=== PATIENT | male | born 1960 | race Caucasian/White ===

== ENCOUNTER 2018-07-09 08:24 | Inpatient (IN) | payer MEDICAID ==
[~2018-07-09] VITALS: Ht 188 cm; Wt 106.0 kg
[~2018-07-09 08:24] MED LIST: AMLO10TA2 PO; HCTZ25T PO
[2018-07-09] MEDS ORDERED: thiamine 100mg/ml 2ml inj. IV ONE ×2 (08:30→12:10)
[2018-07-09] MEDS ORDERED: folic acid 1mg/0.2ml inj IV ONE (08:30)
[2018-07-09] MEDS ORDERED: normal saline 1000ML IV soln IVB ONE (08:30)
[2018-07-09] MEDS ORDERED: ondansetron/PF 4mg/2ml inj IV ONE (08:30)
[2018-07-09] MEDS ORDERED: NALT50TA PO (08:40)
[2018-07-09] MEDS ORDERED: SERT100T PO (08:40)
[2018-07-09] MEDS ORDERED: OMEP20CA10 PO (08:40)
[2018-07-09 09:53] LABS: BASOPHILS % (AUTO) 0 % (0-1); EOSINOPHILS # (AUTO) 0.3 X10'3 (0-0.9); EOSINOPHILS % (AUTO) 1.6 % (0-6); HEMATOCRIT 41.1 % (42.0-52.0); HEMOGLOBIN 14.4 g/dl (14.0-17.9); LYMPHOCYTES # (AUTO) 0.7 X10'3 (1.1-4.8); LYMPHOCYTES % (AUTO) 4.4 % (21-51); MEAN CORPUSCULAR HEMOGLOBIN 36.9 PG (27.0-31.0); MEAN CORPUSCULAR HGB CONC 35.1 % (33.0-36.5); MEAN CORPUSCULAR VOLUME 105.1 FL (78-98); MEAN PLATELET VOLUME 8.4 FL (7.4-10.4); MONOCYTES # (AUTO) 1.2 X10'3 (0-0.9); MONOCYTES % (AUTO) 7.3 % (2-12); NEUTROPHILS # (AUTO) 14.6 X10'3 (1.8-7.7); NEUTROPHILS % (AUTO) 86.7 % (42-75); PLATELET COUNT 121 X10'3 (140-440); RED BLOOD COUNT 3.92 X10'6 (4.70-6.10); RED CELL DISTRIBUTION WIDTH 17.4 % (11.5-14.5); WHITE BLOOD COUNT 16.8 X10'3 (4.5-11.0)
[2018-07-09] MEDS: cefepime 1GM/NS ADD-VANTAGE 100 ML IV SCH ×2 (10:11→16:21)
[2018-07-09 10:24] LABS: ALBUMIN 1.9 G/DL (3.4-5.0); ANION GAP 13 (8-16); BLOOD UREA NITROGEN 75 MG/DL (7-18); CALCIUM 8.7 MG/DL (8.5-10.1); CHLORIDE 88 MMOL/L (99-107); LIPASE 436 U/L (73-393); TOTAL CARBON DIOXIDE 29.3 MMOL/L (24-32); TROPONIN I < 0.04 NG/ML (0.0-0.05)
[2018-07-09 10:37] LABS: ALBUMIN/GLOBULIN RATIO 0.4 (1.1-1.5); GLUCOSE 117 MG/DL (70-104)
[2018-07-09 10:47] LABS: ALANINE AMINOTRANSFERASE 119 U/L (12-78); ASPARTATE AMINO TRANSFERASE 249 U/L (10-37); BILIRUBIN,TOTAL 33.7 MG/DL (0.1-1.0); BUN/CREATININE RATIO 21.6 (5.4-32.0); CREATININE 3.48 MG/DL (0.60-1.10); ETHANOL < 0.010 GM/DL (0.0-0.010); SODIUM 130 MMOL/L (135-145); eGFR 18 ML/MIN
[2018-07-09 10:49] LABS: POTASSIUM 2.4 MMOL/L (3.5-5.1)
[2018-07-09 10:52] LABS: TOTAL PROTEIN 7.3 G/DL (6.4-8.2)
[2018-07-09] MEDS ORDERED: potassium Cl oral solution 20 MEQ/15 ML PO ONE (10:55)
[2018-07-09] MEDS ORDERED: lactulose 20gm/30ml cup PO ONE (11:00)
[2018-07-09 11:52] LABS: ALKALINE PHOSPHATASE 227 IU/L (46-116)
[2018-07-09] MEDS ORDERED: magnesium 4gm in 100ml NS 100 ML IV PRN (12:10)
[2018-07-09] MEDS ORDERED: acetaminophen 325mg tablet PO PRN (12:10)
[2018-07-09] MEDS ORDERED: magnesium 1gm/100ml D5W IVPB 100 ML IV PRN (12:10)
[2018-07-09] MEDS ORDERED: magnesium Cl slow-release 64mg tablet PO PRN (12:10)
[2018-07-09] MEDS ORDERED: potassium Cl 40MEQ/NS 500ml 500 ML IV PRN ×2 (12:10)
[2018-07-09] MEDS ORDERED: dextrose 50%-water 50ml dispensing syringe IV PRN (12:10)
[2018-07-09] MEDS: normal saline 1000ml 1,000 ML IV SCH (12:45)
[2018-07-09] MEDS: lactulose 20gm/30ml cup PO SCH ×2 (13:00→21:34)
[2018-07-09] MEDS ORDERED: iohexol 300mg/ml 100ml inj. ONE (14:41)
[2018-07-09 15:57] VITALS: BP 124/68
[2018-07-09 17:40] LABS: OCCULT BLOOD STOOL POSITIVE (Neg)
[2018-07-09 18:00] VITALS: BP 114/64
[2018-07-09 18:46] LABS: MAGNESIUM 4.2 MG/DL (1.5-2.4); POTASSIUM 2.6 MMOL/L (3.5-5.1)
[2018-07-09] MEDS ORDERED: haloperidol lactate 5mg/ml inj IM PRN (19:05)
[2018-07-09] MEDS ORDERED: haloperidol 5mg tablet PO PRN (19:05)
[2018-07-09] MEDS: potassium Cl 20 mEq SR tablet PO PRN (21:42)
[2018-07-10] VITALS: BP 116/61
[2018-07-10] MEDS: potassium Cl 20 mEq SR tablet PO PRN ×4 (03:51→19:25)
[2018-07-10 06:07] LABS: BASOPHILS % (AUTO) 0 % (0-1); EOSINOPHILS # (AUTO) 0.1 X10'3 (0-0.9); EOSINOPHILS % (AUTO) 0.5 % (0-6); HEMATOCRIT 38.8 % (42.0-52.0); HEMOGLOBIN 13.6 g/dl (14.0-17.9); LYMPHOCYTES # (AUTO) 0.8 X10'3 (1.1-4.8); LYMPHOCYTES % (AUTO) 5.3 % (21-51); MEAN CORPUSCULAR HEMOGLOBIN 37.4 PG (27.0-31.0); MEAN CORPUSCULAR VOLUME 106.9 FL (78-98); MEAN PLATELET VOLUME 8.4 FL (7.4-10.4); MONOCYTES # (AUTO) 1.3 X10'3 (0-0.9); MONOCYTES % (AUTO) 8.1 % (2-12); NEUTROPHILS # (AUTO) 13.5 X10'3 (1.8-7.7); NEUTROPHILS % (AUTO) 86.1 % (42-75); PLATELET COUNT 108 X10'3 (140-440); RED BLOOD COUNT 3.63 X10'6 (4.70-6.10); RED CELL DISTRIBUTION WIDTH 17.5 % (11.5-14.5); WHITE BLOOD COUNT 15.7 X10'3 (4.5-11.0)
[2018-07-10 06:27] LABS: INR 2.1 INR; PROTHROMBIN TIME 20.1 SECONDS (9.0-12.0)
[2018-07-10] MEDS: LORazepam 2 mg/ml vial IV PRN ×2 (06:31→11:37)
[2018-07-10 06:38] LABS: ALANINE AMINOTRANSFERASE 120 U/L (12-78); ALBUMIN 1.7 G/DL (3.4-5.0); ALKALINE PHOSPHATASE 196 IU/L (46-116); ANION GAP 9 (8-16); BLOOD UREA NITROGEN 76 MG/DL (7-18); CALCIUM 8.2 MG/DL (8.5-10.1); CHLORIDE 92 MMOL/L (99-107); CREATININE 3.99 MG/DL (0.60-1.10); SODIUM 130 MMOL/L (135-145); TOTAL CARBON DIOXIDE 28.7 MMOL/L (24-32); eGFR 16 ML/MIN
[2018-07-10 06:39] LABS: ASPARTATE AMINO TRANSFERASE 231 U/L (10-37); BILIRUBIN,TOTAL 31.9 MG/DL (0.1-1.0); GLUCOSE 98 MG/DL (70-104)
[2018-07-10 06:44] LABS: MAGNESIUM 4.1 MG/DL (1.5-2.4); POTASSIUM 2.9 MMOL/L (3.5-5.1)
[2018-07-10 06:57] LABS: TOTAL PROTEIN 6.7 G/DL (6.4-8.2)
[2018-07-10] MEDS: K and/or MAG REPLACEMENT MC SCH (07:06)
[2018-07-10] MEDS: sertraline 50mg tablet PO SCH (07:15)
[2018-07-10] MEDS: pantoprazole 40 MG vial IV SCH (07:15)
[2018-07-10] MEDS: CefTRIAXone 2gm/D5W 50ml 50 ML IV SCH (07:17)
[2018-07-10 07:26] VITALS: BP 128/77
[2018-07-10] MEDS ORDERED: heparin, porcine 5000 units/ml vial SQ SCH (08:00)
[2018-07-10] MEDS: lactulose 20gm/30ml cup PO SCH ×3 (08:00→21:23)
[2018-07-10] MEDS: normal saline 1000ml 1,000 ML IV SCH (11:00)
[2018-07-10 11:03] VITALS: BP 125/64
[2018-07-10] MEDS ORDERED: thiamine inj. 100 MG in normal saline 100ml IV soln 100 ML IV ONE (12:30)
[2018-07-10] MEDS ORDERED: dextrose 50%-water 50ml dispensing syringe IV PRN (12:30)
[2018-07-10] MEDS: dextrose 5%-1/2 normal saline 1,000 ML IV SCH (13:49)
[2018-07-10] MEDS: folic acid inj. 2 MG, thiamine inj. 100 MG, MVI, adult No.4 with vit. K 10 ML in dextro... IV SCH ×4 (17:08)
[2018-07-10 17:18] LABS: ALBUMIN/GLOBULIN RATIO 0.3 (1.1-1.5)
[2018-07-10] MEDS ORDERED: predniSONE 20 mg tablet PO STA (19:00)
[2018-07-10 20:00] VITALS: BP 116/66
[2018-07-10] MEDS: albumin (human) 25% 100ml IV 100 ML IV SCH (21:40)
[2018-07-11] VITALS: BP 130/70
[2018-07-11] MEDS: LORazepam 2 mg/ml vial IV PRN ×3 (00:18→09:30)
[2018-07-11] MEDS: dextrose 5%-1/2 normal saline 1,000 ML IV SCH ×2 (01:45→15:32)
[2018-07-11] MEDS: albumin (human) 25% 100ml IV 100 ML IV SCH ×3 (03:46→15:28)
[2018-07-11 05:02] LABS: BASOPHILS % (AUTO) 0.1 % (0-1); EOSINOPHILS # (AUTO) 0.3 X10'3 (0-0.9); EOSINOPHILS % (AUTO) 1.9 % (0-6); HEMATOCRIT 36.5 % (42.0-52.0); HEMOGLOBIN 12.5 g/dl (14.0-17.9); LYMPHOCYTES # (AUTO) 0.5 X10'3 (1.1-4.8); LYMPHOCYTES % (AUTO) 3.6 % (21-51); MEAN CORPUSCULAR HEMOGLOBIN 36.5 PG (27.0-31.0); MEAN CORPUSCULAR HGB CONC 34.1 % (33.0-36.5); MEAN CORPUSCULAR VOLUME 106.8 FL (78-98); MEAN PLATELET VOLUME 8.2 FL (7.4-10.4); MONOCYTES # (AUTO) 0.6 X10'3 (0-0.9); MONOCYTES % (AUTO) 4.9 % (2-12); NEUTROPHILS # (AUTO) 11.6 X10'3 (1.8-7.7); NEUTROPHILS % (AUTO) 89.5 % (42-75); PLATELET COUNT 91 X10'3 (140-440); RED BLOOD COUNT 3.42 X10'6 (4.70-6.10); RED CELL DISTRIBUTION WIDTH 17.8 % (11.5-14.5); WHITE BLOOD COUNT 12.9 X10'3 (4.5-11.0)
[2018-07-11 05:21] LABS: INR 2.1 INR; PROTHROMBIN TIME 20.9 SECONDS (9.0-12.0)
[2018-07-11 05:36] LABS: ALANINE AMINOTRANSFERASE 120 U/L (12-78); ALBUMIN 2.1 G/DL (3.4-5.0); ALKALINE PHOSPHATASE 178 IU/L (46-116); BLOOD UREA NITROGEN 82 MG/DL (7-18); BUN/CREATININE RATIO 18.1 (5.4-32.0); CALCIUM 8.5 MG/DL (8.5-10.1); CREATININE 4.54 MG/DL (0.60-1.10); TOTAL CARBON DIOXIDE 26.7 MMOL/L (24-32); eGFR 14 ML/MIN
[2018-07-11 05:59] LABS: ALBUMIN/GLOBULIN RATIO 0.5 (1.1-1.5); ASPARTATE AMINO TRANSFERASE 228 U/L (10-37); GLUCOSE 122 MG/DL (70-104); MAGNESIUM 3.7 MG/DL (1.5-2.4); POTASSIUM 3.3 MMOL/L (3.5-5.1); SODIUM 126 MMOL/L (135-145)
[2018-07-11 06:01] LABS: BILIRUBIN,TOTAL 32.7 MG/DL (0.1-1.0)
[2018-07-11 06:03] LABS: ANION GAP 3 (8-16); CHLORIDE 96 MMOL/L (99-107)
[2018-07-11] MEDS: pantoprazole 40 MG vial IV SCH (07:56)
[2018-07-11] MEDS: predniSONE 20 mg tablet PO SCH (07:56)
[2018-07-11] MEDS: sertraline 50mg tablet PO SCH (07:56)
[2018-07-11] MEDS: lactulose 20gm/30ml cup PO SCH ×3 (07:57→21:05)
[2018-07-11] MEDS: K and/or MAG REPLACEMENT MC SCH (08:00)
[2018-07-11 08:18] VITALS: BP 119/72
[2018-07-11 08:50] LABS: PLATELET ESTIMATE DECREASED
[2018-07-11 08:51] LABS: ANISOCYTOSIS 2+; TARGET CELLS FEW; TEAR DROP CELLS FEW
[2018-07-11] MEDS: CefTRIAXone 2gm/D5W 50ml 50 ML IV SCH (09:21)
[2018-07-11] MEDS ORDERED: magnesium 2GM in 50ml NS 50 ML IV PRN (09:44)
[2018-07-11] MEDS: potassium Cl 20 mEq SR tablet PO PRN ×3 (10:39→21:06)
[2018-07-11 11:00] VITALS: BP 124/69
[2018-07-11] MEDS ORDERED: midodrine 5mg tablet PO SCH (16:00)
[2018-07-11] MEDS ORDERED: diphenhydrAMINE 25mg capsule PO PRN (16:30)
[2018-07-11] MEDS: ondansetron/PF 4mg/2ml inj IV PRN (19:04)
[2018-07-11] MEDS ORDERED: LORazepam 1 MG tablet PO PRN (19:05)
[2018-07-11 20:00] VITALS: BP 124/72
[2018-07-12] VITALS: BP 129/75
[2018-07-12] MEDS: albumin (human) 25% 100ml IV 100 ML IV SCH ×4 (00:39→23:33)
[2018-07-12] MEDS: LORazepam 2 mg/ml vial IV PRN ×6 (01:45→23:26)
[2018-07-12] MEDS: dextrose 5%-1/2 normal saline 1,000 ML IV SCH ×3 (01:55→23:32)
[2018-07-12] MEDS: predniSONE 20 mg tablet PO SCH (07:35)
[2018-07-12] MEDS: pantoprazole 40mg Tablet.DR PO SCH (07:35)
[2018-07-12] MEDS: CefTRIAXone 2gm/D5W 50ml 50 ML IV SCH (07:35)
[2018-07-12] MEDS: sertraline 50mg tablet PO SCH (07:35)
[2018-07-12] MEDS: lactulose 20gm/30ml cup PO SCH ×2 (07:35→20:00)
[2018-07-12 07:48] VITALS: BP 115/56
[2018-07-12] MEDS: K and/or MAG REPLACEMENT MC SCH (08:00)
[2018-07-12 08:20] LABS: BASOPHILS % (AUTO) 0 % (0-1); EOSINOPHILS # (AUTO) 0.3 X10'3 (0-0.9); EOSINOPHILS % (AUTO) 1.9 % (0-6); HEMATOCRIT 34.5 % (42.0-52.0); HEMOGLOBIN 11.7 g/dl (14.0-17.9); LYMPHOCYTES # (AUTO) 0.5 X10'3 (1.1-4.8); LYMPHOCYTES % (AUTO) 3.3 % (21-51); MEAN CORPUSCULAR HEMOGLOBIN 36.5 PG (27.0-31.0); MEAN CORPUSCULAR HGB CONC 33.9 % (33.0-36.5); MEAN CORPUSCULAR VOLUME 107.9 FL (78-98); MEAN PLATELET VOLUME 8.4 FL (7.4-10.4); MONOCYTES % (AUTO) 6.8 % (2-12); NEUTROPHILS # (AUTO) 12.4 X10'3 (1.8-7.7); PLATELET COUNT 92 X10'3 (140-440); RED CELL DISTRIBUTION WIDTH 17.9 % (11.5-14.5); WHITE BLOOD COUNT 14.1 X10'3 (4.5-11.0)
[2018-07-12 08:30] LABS: ALBUMIN 2.7 G/DL (3.4-5.0); ALKALINE PHOSPHATASE 157 IU/L (46-116); BLOOD UREA NITROGEN 90 MG/DL (7-18); CHLORIDE 99 MMOL/L (99-107); TOTAL CARBON DIOXIDE 25.4 MMOL/L (24-32)
[2018-07-12 08:38] LABS: ALBUMIN/GLOBULIN RATIO 0.8 (1.1-1.5); BILIRUBIN,TOTAL 32.6 MG/DL (0.1-1.0); POTASSIUM 3.5 MMOL/L (3.5-5.1); TOTAL PROTEIN 6.1 G/DL (6.4-8.2); eGFR 14 ML/MIN
[2018-07-12 08:50] LABS: ANION GAP 13 (8-16); SODIUM 137 MMOL/L (135-145)
[2018-07-12 09:06] LABS: INR 2.3 INR
[2018-07-12 09:11] LABS: BUN/CREATININE RATIO 20.1 (5.4-32.0); CREATININE 4.48 MG/DL (0.60-1.10); GLUCOSE 107 MG/DL (70-104); MAGNESIUM 3.9 MG/DL (1.5-2.4)
[2018-07-12 09:12] LABS: ALANINE AMINOTRANSFERASE 112 U/L (12-78); ASPARTATE AMINO TRANSFERASE 167 U/L (10-37)
[2018-07-12] MEDS: folic acid inj. 2 MG, thiamine inj. 100 MG, MVI, adult No.4 with vit. K 10 ML in dextro... IV SCH ×4 (09:56)
[2018-07-12 12:34] VITALS: BP 105/60
[2018-07-12] MEDS: midodrine 5mg tablet PO SCH ×2 (16:00→23:32)
[2018-07-12 19:15] VITALS: BP 117/72
[2018-07-12] MEDS: ondansetron/PF 4mg/2ml inj IV PRN (20:27)
[2018-07-12 23:00] VITALS: BP 127/77
[2018-07-13] MEDS: LORazepam 2 mg/ml vial IV PRN ×7 (00:58→17:14)
[2018-07-13 06:43] LABS: BASOPHILS % (AUTO) 0.2 % (0-1); EOSINOPHILS # (AUTO) 0.1 X10'3 (0-0.9); EOSINOPHILS % (AUTO) 0.8 % (0-6); HEMATOCRIT 33.9 % (42.0-52.0); HEMOGLOBIN 11.5 g/dl (14.0-17.9); LYMPHOCYTES # (AUTO) 0.8 X10'3 (1.1-4.8); LYMPHOCYTES % (AUTO) 4.4 % (21-51); MEAN CORPUSCULAR HEMOGLOBIN 36.9 PG (27.0-31.0); MEAN CORPUSCULAR HGB CONC 34.1 % (33.0-36.5); MEAN CORPUSCULAR VOLUME 108.5 FL (78-98); MEAN PLATELET VOLUME 8.1 FL (7.4-10.4); MONOCYTES # (AUTO) 0.8 X10'3 (0-0.9); MONOCYTES % (AUTO) 4.5 % (2-12); NEUTROPHILS # (AUTO) 15.5 X10'3 (1.8-7.7); NEUTROPHILS % (AUTO) 90.1 % (42-75); PLATELET COUNT 86 X10'3 (140-440); RED BLOOD COUNT 3.12 X10'6 (4.70-6.10); WHITE BLOOD COUNT 17.2 X10'3 (4.5-11.0)
[2018-07-13 06:59] LABS: INR 2.4 INR; PROTHROMBIN TIME 23.4 SECONDS (9.0-12.0)
[2018-07-13 07:17] LABS: ALBUMIN 2.9 G/DL (3.4-5.0); ALKALINE PHOSPHATASE 150 IU/L (46-116); BLOOD UREA NITROGEN 92 MG/DL (7-18); CALCIUM 8.8 MG/DL (8.5-10.1); CHLORIDE 101 MMOL/L (99-107); TOTAL CARBON DIOXIDE 25.7 MMOL/L (24-32)
[2018-07-13 07:26] VITALS: BP 128/79
[2018-07-13 07:29] LABS: ALBUMIN/GLOBULIN RATIO 0.9 (1.1-1.5); ANION GAP 11 (8-16); BUN/CREATININE RATIO 23.7 (5.4-32.0); CREATININE 3.88 MG/DL (0.60-1.10); GLUCOSE 112 MG/DL (70-104); MAGNESIUM 3.6 MG/DL (1.5-2.4); SODIUM 138 MMOL/L (135-145); TOTAL PROTEIN 6.1 G/DL (6.4-8.2); eGFR 16 ML/MIN
[2018-07-13 07:32] LABS: ALANINE AMINOTRANSFERASE 121 U/L (12-78); ASPARTATE AMINO TRANSFERASE 153 U/L (10-37); BILIRUBIN,TOTAL 31.7 MG/DL (0.1-1.0)
[2018-07-13 07:35] LABS: POTASSIUM 3.2 MMOL/L (3.5-5.1)
[2018-07-13] MEDS: K and/or MAG REPLACEMENT MC SCH (08:00)
[2018-07-13] MEDS: thiamine 100mg tablet PO SCH (08:30)
[2018-07-13] MEDS: pantoprazole 40mg Tablet.DR PO SCH (08:30)
[2018-07-13] MEDS: multivitamins, therapeutics tablet PO SCH (08:30)
[2018-07-13] MEDS: sertraline 50mg tablet PO SCH (08:30)
[2018-07-13] MEDS: CefTRIAXone 2gm/D5W 50ml 50 ML IV SCH (08:30)
[2018-07-13] MEDS: predniSONE 20 mg tablet PO SCH (08:31)
[2018-07-13] MEDS: folic acid 1mg tablet PO SCH (08:31)
[2018-07-13] MEDS: lactulose 20gm/30ml cup PO SCH ×2 (08:31→20:00)
[2018-07-13] MEDS: midodrine 5mg tablet PO SCH ×2 (08:32→15:47)
[2018-07-13] MEDS: albumin (human) 25% 100ml IV 100 ML IV SCH ×2 (08:36→15:46)
[2018-07-13] MEDS ORDERED: FLU VACC QUAD 2018(5 YR UP)/PF 60 MCG/0.5 ML SYRINGE IM ONE (10:00)
[2018-07-13] MEDS ORDERED: LORazepam 2 mg/ml vial IV PRN ×3 (12:10→19:05)
[2018-07-13] MEDS: dextrose 5%-1/2 normal saline 1,000 ML IV SCH (13:30)
[2018-07-13] MEDS ORDERED: predniSONE 20 mg tablet PO SCH (17:05)
[2018-07-13] MEDS: metroNIDAZOLE-Flagyl 500mg/NS 100 ML IV SCH (17:31)
[2018-07-13] MEDS ORDERED: potassium Cl 40MEQ/NS 500ml 500 ML IV PRN ×2 (17:50)
[2018-07-13] MEDS ORDERED: potassium Cl 20 mEq SR tablet PO PRN ×2 (17:50)
[2018-07-13] MEDS ORDERED: LORazepam 1 MG tablet PO PRN ×2 (17:55→19:05)
[2018-07-13 18:45] VITALS: BP 141/71
[2018-07-13] MEDS: lactobacillus rhamnosus 10,000 MMU CELLS/CAPSULE PO SCH (20:00)
[2018-07-13] MEDS ORDERED: albuterol 2.5 MG/3 ML nebule NEB PRN (20:10)
[2018-07-13 21:03] VITALS: BP 128/72
[2018-07-13 21:45] VITALS: BP 120/66
[2018-07-13] MEDS: meropenem inj 1 GM in normal saline 100ml IV soln 100 ML IV SCH (23:12)
[2018-07-14] MEDS: metroNIDAZOLE-Flagyl 500mg/NS 100 ML IV SCH ×3 (01:11→17:15)
[2018-07-14] MEDS: albumin (human) 25% 100ml IV 100 ML IV SCH ×2 (02:17→15:46)
[2018-07-14] MEDS: LORazepam 2 mg/ml vial IV PRN ×4 (02:21→17:41)
[2018-07-14 03:00] VITALS: BP_SYST 121; BP_DIAS 7; BP_DIAS 77
[2018-07-14 04:05] LABS: ABG BASE EXCESS -2.8 mmol/L (-2.0-3.0); ABG HCO3 24.2 mmol/L (22.0-26.0); ABG PCO2 (T) 52.2 mmHg (35.0-48.0); ABG PH (T) 7.286 (7.350-7.450); ABG PO2 (T) 81.8 mmHg (83-108); ALLEN'S TEST Positive; FCOHb 1.7 % (0.5-1.5); FLOW 15 L/min; FMetHb 0.1 % (0.3-1.12); FO2Hb 93.3 % (94-100); PATIENT TEMPERATURE 37.2; RESPIRATORY RATE (OBSERVED) 20 b/min; TOTAL HEMOGLOBIN 12.4 G/dl (14.0-18.0)
[2018-07-14 05:00] VITALS: BP 138/77
[2018-07-14 06:00] VITALS: BP 130/69
[2018-07-14 06:23] LABS: BASOPHILS # (AUTO) 0.1 X10'3 (0-0.2); BASOPHILS % (AUTO) 0.4 % (0-1); EOSINOPHILS % (AUTO) 0 % (0-6); HEMATOCRIT 35.6 % (42.0-52.0); LYMPHOCYTES # (AUTO) 0.4 X10'3 (1.1-4.8); LYMPHOCYTES % (AUTO) 2.4 % (21-51); MEAN CORPUSCULAR HEMOGLOBIN 36.8 PG (27.0-31.0); MEAN CORPUSCULAR HGB CONC 33.7 % (33.0-36.5); MEAN PLATELET VOLUME 8.5 FL (7.4-10.4); MONOCYTES # (AUTO) 0.8 X10'3 (0-0.9); NEUTROPHILS # (AUTO) 17.7 X10'3 (1.8-7.7); NEUTROPHILS % (AUTO) 93.2 % (42-75); PLATELET COUNT 80 X10'3 (140-440); RED BLOOD COUNT 3.27 X10'6 (4.70-6.10); RED CELL DISTRIBUTION WIDTH 18.3 % (11.5-14.5)
[2018-07-14 06:25] LABS: HBSAG SCREEN Negative (Negative); HEP A AB, IGM Negative (Negative); HEP B CORE AB, IGM Negative (Negative); HEPATITIS C ANTIBODY 0.1 s/co ratio (0.0-0.9)
[2018-07-14 06:39] LABS: INR 2.4 INR; PROTHROMBIN TIME 23.2 SECONDS (9.0-12.0)
[2018-07-14 06:49] LABS: ALBUMIN 3.2 G/DL (3.4-5.0); ALKALINE PHOSPHATASE 153 IU/L (46-116); BLOOD UREA NITROGEN 95 MG/DL (7-18); CHLORIDE 105 MMOL/L (99-107); TOTAL CARBON DIOXIDE 24.9 MMOL/L (24-32)
[2018-07-14 07:04] LABS: ANION GAP 19 (8-16); BUN/CREATININE RATIO 25.8 (5.4-32.0); CREATININE 3.68 MG/DL (0.60-1.10); GLUCOSE 124 MG/DL (70-104); MAGNESIUM 3.3 MG/DL (1.5-2.4); POTASSIUM 3.7 MMOL/L (3.5-5.1); SODIUM 149 MMOL/L (135-145); TOTAL PROTEIN 6.4 G/DL (6.4-8.2); eGFR 17 ML/MIN
[2018-07-14 07:05] LABS: ALANINE AMINOTRANSFERASE 127 U/L (12-78); ASPARTATE AMINO TRANSFERASE 144 U/L (10-37); BILIRUBIN,TOTAL 34.6 MG/DL (0.1-1.0)
[2018-07-14 07:10] LABS: ABG BASE EXCESS -3.2 mmol/L (-2.0-3.0); ABG HCO3 23.8 mmol/L (22.0-26.0); ABG OXYGEN SATURATION 88.8 % (95-98); ABG PCO2 (T) 51.3 mmHg (35.0-48.0); ABG PH (T) 7.285 (7.350-7.450); ABG PO2 (T) 58.4 mmHg (83-108); FCOHb 1.7 % (0.5-1.5); FMetHb 0.1 % (0.3-1.12); FO2Hb 87.2 % (94-100); MINUTE VOLUME 23 L/min; RESPIRATORY RATE 12 b/min; RESPIRATORY RATE (OBSERVED) 26 b/min; TIDAL VOLUME 555 mL; TOTAL HEMOGLOBIN 12.4 G/dl (14.0-18.0)
[2018-07-14] MEDS: pantoprazole 40mg Tablet.DR PO SCH (07:30)
[2018-07-14] MEDS: midodrine 5mg tablet PO SCH ×3 (08:00→16:00)
[2018-07-14] MEDS: lactobacillus rhamnosus 10,000 MMU CELLS/CAPSULE PO SCH (08:00)
[2018-07-14] MEDS: thiamine 100mg tablet PO SCH (08:00)
[2018-07-14] MEDS: sertraline 50mg tablet PO SCH (08:00)
[2018-07-14] MEDS: K and/or MAG REPLACEMENT MC SCH (08:00)
[2018-07-14] MEDS: multivitamins, therapeutics tablet PO SCH (08:00)
[2018-07-14] MEDS: lactulose 20gm/30ml cup PO SCH (08:00)
[2018-07-14] MEDS: folic acid 1mg tablet PO SCH (08:00)
[2018-07-14] MEDS: predniSONE 20 mg tablet PO SCH (08:00)
[2018-07-14] MEDS: CefTRIAXone 2gm/D5W 50ml 50 ML IV SCH (09:30)
[2018-07-14 11:00] VITALS: BP 134/67
[2018-07-14] MEDS: meropenem inj 1 GM in normal saline 100ml IV soln 100 ML IV SCH (12:15)
[2018-07-14] MEDS ORDERED: dextrose 5%-water 1,000 ML IV SCH (13:20)
[2018-07-14 15:00] VITALS: BP 112/48
[2018-07-14] MEDS: dextrose 5%-1/2 normal saline 1,000 ML IV SCH (15:40)
[2018-07-14 16:16] LABS: ABG BASE EXCESS -4.7 mmol/L (-2.0-3.0); ABG HCO3 23.8 mmol/L (22.0-26.0); ABG OXYGEN SATURATION 82.7 % (95-98); ABG PCO2 (T) 59.6 mmHg (35.0-48.0); ABG PO2 (T) 51.7 mmHg (83-108); FCOHb 1.7 % (0.5-1.5); FMetHb 0.3 % (0.3-1.12); MINUTE VOLUME 29 L/min; RESPIRATORY RATE 12 b/min; RESPIRATORY RATE (OBSERVED) 39 b/min; TIDAL VOLUME 659 mL; TOTAL HEMOGLOBIN 13.2 G/dl (14.0-18.0)
[2018-07-14] MEDS ORDERED: LORazepam 2 mg/ml vial IV ONE (16:25)
[2018-07-14] MEDS ORDERED: LORazepam 2 mg/ml vial IV PRN (18:20)
[2018-07-14] MEDS ORDERED: morphine 10mg/0.5ml (conc. morphine) oral syringe PO PRN (18:20)
[2018-07-14] MEDS ORDERED: morphine 10mg/ml inj. IV PRN (18:20)
[2018-07-16] MEDS ORDERED: VANCOMYCIN LEVEL IV ONE (22:30)
== END 2018-07-14 22:00 | disposition expired | DRG 279 ==
LOC: ER 08:25 → ED HOLD 12:09 → SUR 3N 15:29 → PCU 3S 07-13 21:20
PROVIDERS: ADMIT Internal Medicine; ATTEND Internal Medicine
PROC: 3E02340 Introduction of Influenza Vaccine into Muscle, Percutaneous Approach (ICD-10-PCS; 2018-07-13)
PROC: 5A09357 Assistance with Respiratory Ventilation, Less than 24 Consecutive Hours, Continuous Positive Airway Pressure (ICD-10-PCS; principal; 2018-07-14)
DX: K72.00 Acute and subacute hepatic failure without coma (principal); J96.90 Respiratory failure, unspecified, unspecified whether with hypoxia or hypercapnia; J69.0 Pneumonitis due to inhalation of food and vomit; K76.7 Hepatorenal syndrome; G93.41 Metabolic encephalopathy; K85.90 Acute pancreatitis without necrosis or infection, unspecified; N17.9 Acute kidney failure, unspecified; N18.4 Chronic kidney disease, stage 4 (severe); D69.6 Thrombocytopenia, unspecified; E87.2 Acidosis; E87.1 Hypo-osmolality and hyponatremia; K70.11 Alcoholic hepatitis with ascites; E87.6 Hypokalemia; F32.9 Major depressive disorder, single episode, unspecified; G89.29 Other chronic pain; K59.00 Constipation, unspecified; Z66 Do not resuscitate; F10.239 Alcohol dependence with withdrawal, unspecified; F15.90 Other stimulant use, unspecified, uncomplicated; R45.1 Restlessness and agitation; Z51.5 Encounter for palliative care; Z79.899 Other long term (current) drug therapy; Z82.49 Family history of ischemic heart disease and other diseases of the circulatory system; Z23 Encounter for immunization; Z88.0 Allergy status to penicillin; E87.0 Hyperosmolality and hypernatremia
CPT/HCPCS: 36415; 36600; 71045; 74176; 74181; 76700; 80053; 80074; 80320; 82140; 82272; 82803; 82948; 83605; 83690; 83735; 83880; 84132; 84484; 85018; 85025; 85610; 87040; 87070; 93005; 93306; 94660; 94760; 96361; 96374; 96375; 99291; 99292; C9113; G0378; J0692; J0696; J1630; J2060; J2185; J2270; J2405; J3370; J3411; J3480; J3490; J7030; J7060; J7070; J7512; P9047; Q2037; Q9967